=== PATIENT | male | born 1990 | race African-American/Black ===

== ENCOUNTER 2025-02-22 22:07 | Emergency (ER) | payer OTHER ==
[~2025-02-22] VITALS: Ht 198.1 cm; Wt 145.1 kg
[2025-02-22 22:50] LABS: PLATELET COUNT (AUTO) 342 K/uL (152-348); RED BLOOD CELL COUNT(AUTO) 5.42 MIL/uL (4.06-5.63); RED CELL DISTRIBUTION WIDTH 17.7 % (12.1-16.2); WHITE BLOOD COUNT (AUTO) 7.7 K/uL (3.6-10.2)
[2025-02-22 23:00] LABS: CREATININE 1.2 mg/dL (0.6-1.3); SODIUM SERUM 143 mmol/L (136-145); UREA NITROGEN, BLOOD 12 mg/dL (7-18)
[2025-02-22 23:06] LABS: ASPARTATE AMINOTRANSFERASE < 5 U/L (15-37); TOTAL PROTEIN, SERUM 7.1 g/dL (6.4-8.2)
[2025-02-22] MEDS ORDERED: HYDROMORPHONE 1 MG/1 ML DISP.SYRIN ONE (23:10)
[2025-02-22] MEDS: HYDROMORPHONE 1 MG/1 ML DISP.SYRIN IV ONE (23:20)
[2025-02-23] MEDS ORDERED: HYDROMORPHONE 1 MG/1 ML DISP.SYRIN ONE (00:23)
[2025-02-23] MEDS: HYDROMORPHONE 1 MG/1 ML DISP.SYRIN IV ONE (00:27)
[2025-02-23 00:28] VITALS: BP 127/75
[2025-02-23] MEDS ORDERED: diphenhydrAMINE 50 MG/1 ML VIAL ONE (01:13)
[2025-02-23] MEDS: diphenhydrAMINE 50 MG/1 ML VIAL IV ONE (01:16)
[2025-02-23] MEDS ORDERED: HYDR-4209 PO (01:17)
[2025-02-23 01:35] VITALS: BP 111/78; O2SAT 99
== END 2025-02-23 01:36 | disposition home or self-care (01) ==
LOC: ER 22:09
DX: D57.00 Hb-SS disease with crisis, unspecified (principal); I51.9 Heart disease, unspecified; R07.9 Chest pain, unspecified; M79.604 Pain in right leg; M79.605 Pain in left leg
CPT/HCPCS: 99285; 93970; 96374; 71045; 80076; 80048; 83615; 85025; 85044; 85379; 85730; 84484; 36415; 93005; 96375; 96376; J1171 ×2; J1200; 70030-TC; A4606; A4663